=== PATIENT | female | born 1990 | race Caucasian/White ===

== ENCOUNTER 2019-12-17 15:47 | Outpatient (CLI) | payer OTHER, SELFPAY ==
--- NOTE | ~2019-12-17 | US_ITS ---
EXAMINATION: US pelvic complete w TV DATE: 12/17/2019 16:18 INDICATION: Left pelvic pain. TECHNIQUE: Multiple transabdominal and transvaginal sonographic images of the pelvis were obtained. COMPARISON: None. FINDINGS: TRANSABDOMINAL ULTRASOUND: The uterus measures 8.0 x 3.6 x 6.7 cm. There is no free fluid in the pelvis. TRANSVAGINAL ULTRASOUND: The endometrial complex measures 5 mm in thickness. There is an intrauterine device in expected posit ion. The right ovary measures 3.2 x 2.3 x 1.8 cm. The left ovary measures 2.5 x 1.2 x 1.5 cm. There i s normal vascular flow in the ovaries. IMPRESSION: 1. Intrauterine device in expected position. Reviewed, dictated and finalized at location A.
== END 2019-12-17 15:48 | disposition home or self-care (01) ==
LOC: CHSIMG 15:51
PROVIDERS: PCP Internal Medicine; Visit Provider Internal Medicine
DX: R10.32 Left lower quadrant pain (principal)
CPT/HCPCS: 76830; 76856

== ENCOUNTER 2021-04-20 08:29 | Outpatient (CLI) | payer OTHER, SELFPAY ==
[2021-04-20 09:11] LABS: SARS-CoV-2 Ag Negative (Negative)
== END 2021-04-20 08:30 | disposition home or self-care (01) ==
LOC: CHSLAB 08:32
PROVIDERS: PCP Internal Medicine; Visit Provider Internal Medicine
DX: Z20.822 Contact with and (suspected) exposure to COVID-19 (principal)
CPT/HCPCS: 87426; C9803

== ENCOUNTER 2021-07-27 14:05 | Outpatient (CLI) | payer OTHER, SELFPAY ==
--- NOTE | ~2021-07-27 | US_ITS ---
EXAMINATION: US pelvic complete w TV DATE: 07/27/2021 14:38 INDICATION: PELVIC PAIN; IUD PLACEMENT CHECK TECHNIQUE: Multiple transabdominal and endovaginal sonographic images of the pelvis were obtained. COMPARISON: 12/17/2019. FINDINGS: Uterus: 9.7 x 5.8 x 3.6 cm. Endometrial complex measures 0.[address]. Right Ovary: 2.8 x 2.9 x 2.7 cm. Vascular flow is present. 2.2 cm dominant follicle versus cyst. Left Ovary: 2.4 x 2.3 x 2.1 cm. Vascular flow is present. There is no free fluid in the pelvis. IMPRESSION: 1. IUD in good position. Normal pelvic sonogram findings. Reviewed, dictated and finalized at location K.
== END 2021-07-27 14:06 | disposition home or self-care (01) ==
LOC: CHSIMG 14:07
PROVIDERS: PCP Internal Medicine
DX: R10.2 Pelvic and perineal pain (principal)
CPT/HCPCS: 76830; 76856

== ENCOUNTER 2021-08-17 08:09 | Outpatient (CLI) | payer OTHER, SELFPAY ==
--- NOTE | ~2021-08-17 | US_ITS ---
EXAMINATION: US right upper quadrant DATE: 08/17/2021 08:29 INDICATION: Abdominal pain. TECHNIQUE: Multiple grayscale and Doppler ultrasound images of the abdomen were obtained. COMPARISON: CT abdomen and pelvis 01/09/2017 FINDINGS: The visualized portions of the head, body, and tail of the pancreas are normal. The liver i s normal without focal lesion. There is normal flow in main portal vein. The gallbladder is normal in size. No gallstones or gallbladder wall thickening. There was no sonographic Nelson sign. The common duct is normal and measures 4 mm. IMPRESSION: 1. Normal right upper quadrant ultrasound. Reviewed, dictated and finalized at location B.
== END 2021-08-17 08:10 | disposition home or self-care (01) ==
LOC: CHSIMG 08:10
PROVIDERS: PCP Internal Medicine; Visit Provider Internal Medicine
DX: R10.9 Unspecified abdominal pain (principal)
CPT/HCPCS: 76705

== ENCOUNTER 2021-12-08 09:09 | Outpatient (CLI) | payer OTHER, SELFPAY ==
--- NOTE | ~2021-12-08 | XR_ITS ---
EXAMINATION: XR chest 2V 12/08/2021 09:26 INDICATION: Cough for 3 days PROCEDURE: 2 view chest COMPARISON: No prior studies for comparison. FINDINGS: The lungs are clear. The cardiomediastinal silhouette is within normal limits. There are no pleural effusions. There is no pneumothorax suspected. IMPRESSION: 1: NO ACUTE CARDIOPULMONARY DISEASE. Reviewed, dictated and finalized at location A.
== END 2021-12-08 09:10 | disposition home or self-care (01) ==
LOC: CHSIMG 09:10
PROVIDERS: PCP Internal Medicine; Visit Provider Internal Medicine
DX: R05.9 Cough, unspecified (principal)
CPT/HCPCS: 71046

== ENCOUNTER 2021-12-28 12:27 | Outpatient (CLI) | payer OTHER, SELFPAY ==
[2021-12-28 13:38] LABS: SARS-CoV-2 RNA PCR Positive (Negative)
== END 2021-12-28 12:28 | disposition home or self-care (01) ==
LOC: CHSLAB 12:31
PROVIDERS: PCP Internal Medicine; Visit Provider Internal Medicine
DX: U07.1 COVID-19 (principal); J06.9 Acute upper respiratory infection, unspecified
CPT/HCPCS: C9803; U0003; U0005

== ENCOUNTER 2023-05-22 17:12 | Outpatient (CLI) | payer OTHER, SELFPAY | END 2023-05-22 17:13 | disposition home or self-care (01) | PROVIDERS: PCP Internal Medicine; Visit Provider Internal Medicine | DX: N91.2 Amenorrhea, unspecified (principal) | CPT/HCPCS: 36415; 84702 ==

== ENCOUNTER 2023-05-23 08:35 | Outpatient (CLI) | payer OTHER, SELFPAY ==
--- NOTE | ~2023-05-23 | US_ITS ---
EXAMINATION: US pelvic complete w TV DATE: 05/23/2023 09:21 INDICATION: Pelvic pain. Positive test with IUD. TECHNIQUE: Multiple transabdominal and endovaginal sonographic images of the pelvis were obtained. COMPARISON: None. FINDINGS: The uterus measures 10.0 x 5.6 x 2.9 cm. There is a linear echogenic and shadowing IUD in expected po sition within the endometrial canal. Endometrial complex measures approximately 5 mm in thickness. No evident intrauterine gestational sac. The right ovary measures 2.3 x 2.1 x 1.8 cm. 9 mm anechoic cys t/follicle in the right ovary. The left ovary measures 3.3 x 2.7 x 3.0 cm. There are a few anechoic c ysts/follicles in the left ovary the largest measuring 2.5 cm. Vascular flow identified in both ovari es on color Doppler. There is a very small amount of anechoic free fluid in the cul-de-sac. IMPRESSION: 1. IUD in expected position within the endometrial canal. No intrauterine gestational sac which in se tting of positive test could represent either an early, failed or ectopic . Reviewed, dictated and finalized at location A. [employer] IMPRESSION: 1. IUD in expected position within the endometrial canal. No intrauterine gesta tional sac which in setting of positive test could represent either a n early, failed or ectopic .
== END 2023-05-23 08:36 | disposition home or self-care (01) ==
PROVIDERS: PCP Family Medicine; Visit Provider Family Medicine
DX: R10.2 Pelvic and perineal pain (principal); Z97.5 Presence of (intrauterine) contraceptive device
CPT/HCPCS: 76830; 76856

== ENCOUNTER 2023-05-24 17:12 | Outpatient (CLI) | payer OTHER, SELFPAY ==
[2023-05-31 07:30] LABS: Progesterone 2.6 ng/mL (***)
== END 2023-05-24 17:13 | disposition home or self-care (01) ==
LOC: CHSLAB 17:13
PROVIDERS: PCP Internal Medicine; Visit Provider Obstetrics & Gynecology
DX: O20.0 Threatened abortion (principal)
CPT/HCPCS: 36415; 84144; 84702; 86850; 86900; 86901

== ENCOUNTER 2023-06-04 08:11 | Outpatient (CLI) | payer OTHER, SELFPAY ==
[2023-06-04 08:53] LABS: Beta HCG Quantitative < 1.00 mIU/mL (0-6)
== END 2023-06-04 08:12 | disposition home or self-care (01) ==
LOC: CHSLAB 08:13
PROVIDERS: PCP Internal Medicine; Visit Provider Obstetrics & Gynecology
DX: O03.9 Complete or unspecified spontaneous abortion without complication (principal)
CPT/HCPCS: 36415; 84702

== ENCOUNTER 2023-10-25 12:24 | Outpatient (CLI) | payer OTHER, SELFPAY ==
--- NOTE | ~2023-10-25 | US_ITS ---
EXAMINATION: US transvaginal DATE: 10/25/2023 12:55 INDICATION: Intrauterine device placement. TECHNIQUE: Multiple transvaginal sonographic images of the pelvis were obtained. COMPARISON: Ultrasound 05/23/2023 FINDINGS: The uterus measures 7.8 x 4.1 x 2.8 cm. There is physiologic free fluid in the pelvis. The endometria l complex measures 7 mm in thickness. There is an intrauterine device in expected position. The right ovary measures 2.2 x 2.4 x 2.0 cm. The left ovary measures 2.7 x 2.0 x 2.0 cm. There is normal vascu lar flow in the ovaries. IMPRESSION: 1. Intrauterine device in expected position. Reviewed, dictated and finalized at location E.
== END 2023-10-25 12:25 | disposition home or self-care (01) ==
LOC: CHSIMG 12:26
PROVIDERS: PCP Internal Medicine
DX: Z30.431 Encounter for routine checking of intrauterine contraceptive device (principal)
CPT/HCPCS: 76830